=== PATIENT | female | born 1975 | race Caucasian/White ===

== ENCOUNTER → 2016-11-09 | Outpatient (CLI) | payer BC ==
[~2016-11-09] MED LIST: CONCERTA27 MG PO; Ecotrin PO; HEALTHY HEART1 EAC1 PO; LYRICA75 MG PO; PRINIVIL5 MG PO; PROAIR RESPICL90 MCG IH; PROVENTIL17 GM IH; PULMICORT FLE180 MCG IH; SINGULAIR10 MG PO; SYNTHROID100 MCG PO; SYNTHROID75 MCG PO; ZOLOFT50 MG PO
== END | disposition home or self-care (01) ==
LOC: AMB 12:56
DX: M51.16 Intervertebral disc disorders with radiculopathy, lumbar region (principal); M48.06 Spinal stenosis, lumbar region
CPT/HCPCS: 62304; 72132

== ENCOUNTER → 2017-01-03 | Outpatient (CLI) | payer BC | END | disposition home or self-care (01) | LOC: CDC 08:36 | DX: R94.31 Abnormal electrocardiogram [ECG] [EKG] (principal); M48.06 Spinal stenosis, lumbar region | CPT/HCPCS: 93000 ==

== ENCOUNTER 2018-04-03 01:13 | Emergency (ER) | payer BC ==
[~2018-04-03] VITALS: Ht 160 cm; Wt 59.3 kg
[2018-04-03] MEDS ORDERED: TYLENOL REGULA325 MG PO (03:08)
[2018-04-03 03:23] VITALS: BP 155/105
== END 2018-04-03 03:24 | disposition home or self-care (01) ==
LOC: EME 01:13
DX: S01.01XA Laceration without foreign body of scalp, initial encounter (principal); S09.90XA Unspecified injury of head, initial encounter; Z23 Encounter for immunization; W20.8XXA Other cause of strike by thrown, projected or falling object, initial encounter; E03.9 Hypothyroidism, unspecified; J45.909 Unspecified asthma, uncomplicated
CPT/HCPCS: 99281; 99284